=== PATIENT | female | born 1940 | race Caucasian/White ===

== ENCOUNTER 2016-11-19 07:14 | Inpatient (IN) | payer OTHER, MEDICAID ==
[~2016-11-19] VITALS: Ht 162.6 cm; Wt 60.5 kg
[2016-11-19] MEDS ORDERED: SODIUM CHLORIDE 0.9% 1,000 ML IV ONE (07:22)
[2016-11-19] MEDS ORDERED: DIAZEPAM 5 MG/ML, 2ML IVPush ONE (07:30)
[2016-11-19] MEDS ORDERED: SODIUM CHLORIDE FLUSH 10ML SYR IVF ONE (07:30)
[2016-11-19] MEDS ORDERED: ONDANSETRON 2MG/ML, 2ML IVPush ONE (07:30)
[2016-11-19] MEDS ORDERED: PLEASE ENTER ALLERGIES MC SCH ×2 (07:30)
[2016-11-19] MEDS ORDERED: BENA5TAB2 PO (07:50)
[2016-11-19] MEDS ORDERED: LOVA10TA PO (07:50)
[2016-11-19] MEDS ORDERED: HYDR12.53 PO (07:50)
[2016-11-19] MEDS ORDERED: ONDANSETRON 2MG/ML, 2ML ONE (07:58)
[2016-11-19] MEDS ORDERED: DIAZEPAM 5 MG/ML, 2ML ONE (07:58)
[2016-11-19] MEDS ORDERED: MORPHINE SULFATE 4 MG/ML, 1ML ONE ×2 (07:58→09:04)
[2016-11-19] MEDS: MORPHINE SULFATE 4 MG/ML, 1ML IVPush PRN ×2 (08:02→09:14)
[2016-11-19 08:31] LABS: ASPARTATE AMINO TRANSFERASE 8 U/L (15-37); BLOOD UREA NITROGEN 12 mg/dL (7-18)
[2016-11-19] MEDS ORDERED: OMNIPAQUE 350 MG/ML, 100ML BOTTLE ONE (10:31)
[2016-11-19] MEDS ORDERED: DIAZEPAM 5 MG TABLET ONE (10:44)
[2016-11-19] MEDS ORDERED: OXYcodone/APAP 5/325MG TABLET ONE (10:44)
[2016-11-19] MEDS ORDERED: OXYcodone/APAP 5/325MG TABLET PO ONE (11:00)
[2016-11-19] MEDS ORDERED: DIAZEPAM 5 MG TABLET PO ONE (11:00)
[2016-11-19] MEDS ORDERED: HYDROmorphone 2MG TABLET PO ONE (12:10)
[2016-11-19] MEDS ORDERED: POTASSIUM CHLORIDE 20 MEQ TAB.ER.PRT PO ONE (12:30)
[2016-11-19] MEDS ORDERED: CEFTRIAXONE PMX 1GM/50ML 50 ML IV ONE (12:30)
[2016-11-19] MEDS ORDERED: CEFTRIAXONE PMX 1GM/50ML 50 ML ONE (12:38)
[2016-11-19] MEDS ORDERED: POTASSIUM CHLORIDE 20 MEQ TAB.ER.PRT ONE (12:38)
[2016-11-19] MEDS: NICOTINE 21 MG/24 HR PATCH.TD24 TD SCH (14:00)
[2016-11-19 14:37] VITALS: BP 134/62
[2016-11-19] MEDS: OXYcodone IR 5MG TABLET PO PRN ×3 (15:03→22:23)
[2016-11-19] MEDS: HEPARIN 5,000 UNITS/ML, 1ML SQ SCH ×2 (15:39→21:00)
[2016-11-19] MEDS ORDERED: TIOT18CA INH (15:58)
[2016-11-19 20:50] VITALS: BP 146/66
[2016-11-20 02:40] VITALS: BP 107/65
[2016-11-20 04:35] LABS: BLOOD UREA NITROGEN 8 mg/dL (7-18)
[2016-11-20] MEDS: OXYcodone IR 5MG TABLET PO PRN ×5 (04:36→23:14)
[2016-11-20] MEDS: HEPARIN 5,000 UNITS/ML, 1ML SQ SCH ×3 (06:09→21:36)
[2016-11-20] MEDS ORDERED: NALOXONE 1 MG/ML, 2ML ONE (07:24)
[2016-11-20] MEDS ORDERED: FLUMAZENIL 0.1 MG/1 ML, 5ML ONE (07:24)
[2016-11-20] MEDS ORDERED: MIDAZOLAM 1 MG/ML, 5ML ONE (07:24)
[2016-11-20] MEDS ORDERED: FENTANYL PF 100 MCG/2ML ONE (07:24)
[2016-11-20 08:00] VITALS: BP 148/72
[2016-11-20] MEDS: BENAZEPRIL 5 MG TABLET PO SCH (09:43)
[2016-11-20] MEDS: HYDROCHLOROTHIAZIDE 12.5 MG CAPSULE PO SCH (09:44)
[2016-11-20] MEDS: CEFTRIAXONE PMX 1GM/50ML 50 ML IV SCH (12:15)
[2016-11-20] MEDS: NICOTINE 21 MG/24 HR PATCH.TD24 TD SCH (12:46)
[2016-11-20 14:11] VITALS: BP 114/63
[2016-11-20] MEDS ORDERED: POTASSIUM CHLORIDE 20 MEQ TAB.ER.PRT PO ONE (15:00)
[2016-11-20 20:50] VITALS: BP 134/68
[2016-11-21 02:23] VITALS: BP 115/60
[2016-11-21 04:58] LABS: BLOOD UREA NITROGEN 10 mg/dL (7-18)
[2016-11-21] MEDS: OXYcodone IR 5MG TABLET PO PRN ×4 (06:02→21:34)
[2016-11-21] MEDS: HEPARIN 5,000 UNITS/ML, 1ML SQ SCH ×2 (06:03→13:30)
[2016-11-21 06:47] VITALS: BP 137/71
[2016-11-21] MEDS: BENAZEPRIL 5 MG TABLET PO SCH (08:04)
[2016-11-21] MEDS: HYDROCHLOROTHIAZIDE 12.5 MG CAPSULE PO SCH (08:04)
[2016-11-21] MEDS: CEFTRIAXONE PMX 1GM/50ML 50 ML IV SCH (12:13)
[2016-11-21] MEDS: NICOTINE 21 MG/24 HR PATCH.TD24 TD SCH (13:40)
[2016-11-21 13:50] VITALS: BP 130/72
[2016-11-21 16:52] VITALS: BP 134/72
[2016-11-21 18:52] VITALS: BP 134/72
[2016-11-22 04:06] VITALS: BP 124/72
[2016-11-22] MEDS: OXYcodone IR 5MG TABLET PO PRN ×4 (04:48→20:31)
[2016-11-22 06:44] VITALS: BP 104/61
[2016-11-22] MEDS: HYDROCHLOROTHIAZIDE 12.5 MG CAPSULE PO SCH (08:02)
[2016-11-22] MEDS: BENAZEPRIL 5 MG TABLET PO SCH (08:02)
[2016-11-22] MEDS ORDERED: KETAMINE 10 MG/ML, 20ML ONE (10:32)
[2016-11-22] MEDS ORDERED: MIDAZOLAM 1 MG/ML, 2ML ONE (10:32)
[2016-11-22] MEDS ORDERED: FENTANYL PF 100 MCG/2ML ONE (10:32)
[2016-11-22] MEDS ORDERED: POTASSIUM CHLORIDE 20 MEQ TAB.ER.PRT PO ONE ×2 (11:30)
[2016-11-22] MEDS ORDERED: POTASSIUM CHLORIDE 20 MEQ in SODIUM CHLORIDE 0.9% 250 ML IV ONE (11:30)
[2016-11-22] MEDS ORDERED: MAGNESIUM SULFATE PMX 2GM/50ML 50 ML IV ONE (11:30)
[2016-11-22] MEDS: CEFTRIAXONE PMX 1GM/50ML 50 ML IV SCH (11:54)
[2016-11-22 12:53] VITALS: BP 133/69
[2016-11-22] MEDS: NICOTINE 21 MG/24 HR PATCH.TD24 TD SCH (14:21)
[2016-11-22 20:30] VITALS: BP 128/72
[2016-11-22] MEDS: LOVASTATIN 40 MG TABLET PO SCH (20:31)
[2016-11-23] MEDS: OXYcodone IR 5MG TABLET PO PRN (01:22)
[2016-11-23 03:15] VITALS: BP 133/73
[2016-11-23 04:52] LABS: BLOOD UREA NITROGEN 14 mg/dL (7-18)
[2016-11-23] MEDS ORDERED: OXYcodone IR 5MG TABLET PO PRN ×2 (06:00)
[2016-11-23 06:38] VITALS: BP 127/71
[2016-11-23] MEDS ORDERED: MIDAZOLAM 1 MG/ML, 5ML ONE (07:05)
[2016-11-23] MEDS ORDERED: KETAMINE 10 MG/ML, 20ML ONE (07:05)
[2016-11-23] MEDS ORDERED: FENTANYL PF 250 MCG/5ML ONE (07:05)
[2016-11-23] MEDS ORDERED: ALBUTEROL/IPRATROPIUM 2.5MG/0.5MG, 3 ML ONE ×2 (07:39→09:29)
[2016-11-23] MEDS: ALBUTEROL/IPRATROPIUM 2.5MG/0.5MG, 3 ML NPPB PRN ×2 (07:41→09:30)
[2016-11-23] MEDS ORDERED: REMIFENTANIL 1 MG ONE (07:42)
[2016-11-23] MEDS ORDERED: KETAMINE 100 MG/ML, 5ML ONE (07:42)
[2016-11-23] MEDS ORDERED: LIDOCAINE 2%, 20ML ONE (08:00)
[2016-11-23] MEDS ORDERED: HYDROmorphone 1 MG/ML, 1ML IV PRN (09:00)
[2016-11-23] MEDS ORDERED: PROMETHAZINE 25 MG/ML, 1ML IV PRN (09:00)
[2016-11-23] MEDS ORDERED: METOPROLOL 1 MG/ML, 5ML IV PRN (09:00)
[2016-11-23] MEDS ORDERED: FENTANYL PF 100 MCG/2ML IV PRN (09:00)
[2016-11-23] MEDS: HYDROCHLOROTHIAZIDE 12.5 MG CAPSULE PO SCH (09:00)
[2016-11-23] MEDS ORDERED: LABETALOL 5MG/ML, 20ML IV PRN (09:00)
[2016-11-23] MEDS ORDERED: ONDANSETRON 2MG/ML, 2ML IVPush PRN (09:00)
[2016-11-23] MEDS ORDERED: METOCLOPRAMIDE 5 MG/ML, 2ML IV PRN (09:00)
[2016-11-23] MEDS ORDERED: OXYcodone 5 MG/5 ML ORAL.SOL UDC PO PRN (09:00)
[2016-11-23] MEDS ORDERED: hydrALAzine 20 MG/ML, 1ML IV PRN (09:00)
[2016-11-23] MEDS: BENAZEPRIL 5 MG TABLET PO SCH (09:00)
[2016-11-23] MEDS ORDERED: ACETAMINOPHEN 325 MG TABLET PO PRN (09:00)
[2016-11-23] MEDS ORDERED: EPHEDRINE 50 MG/ML, 1ML IVPush PRN (09:00)
[2016-11-23] MEDS: AMLODIPINE 5 MG TABLET PO SCH (09:00)
[2016-11-23] MEDS: NICOTINE 21 MG/24 HR PATCH.TD24 TD SCH (09:50)
[2016-11-23] MEDS ORDERED: METOPROLOL 1 MG/ML, 5ML ONE (10:11)
[2016-11-23] MEDS ORDERED: SUCCINYLCHOLINE 20 MG/ML, 10ML ONE (11:00)
[2016-11-23] MEDS ORDERED: PROPOFOL 10 MG/ML, 50ML ONE (11:00)
[2016-11-23] MEDS ORDERED: GLYCOPYRROLATE 0.2MG/1ML ONE (11:00)
[2016-11-23] MEDS: CEFTRIAXONE PMX 1GM/50ML 50 ML IV SCH (12:30)
[2016-11-23 12:56] VITALS: BP 134/66
[2016-11-23 20:55] VITALS: BP 125/60
[2016-11-23] MEDS: LOVASTATIN 40 MG TABLET PO SCH (21:19)
[2016-11-24 00:57] VITALS: BP 130/63
[2016-11-24 06:40] VITALS: BP 125/58
[2016-11-24] MEDS: BENAZEPRIL 5 MG TABLET PO SCH (08:53)
[2016-11-24] MEDS: AMLODIPINE 5 MG TABLET PO SCH (08:54)
[2016-11-24] MEDS: HYDROCHLOROTHIAZIDE 12.5 MG CAPSULE PO SCH (08:54)
[2016-11-24] MEDS: CEFTRIAXONE PMX 1GM/50ML 50 ML IV SCH (13:05)
[2016-11-24 13:13] VITALS: BP 138/65
[2016-11-24] MEDS: NICOTINE 21 MG/24 HR PATCH.TD24 TD SCH (14:00)
[2016-11-24] MEDS: OXYcodone IR 5MG TABLET PO PRN ×2 (14:13→20:25)
[2016-11-24] MEDS: ACETAMINOPHEN 325 MG TABLET PO PRN (17:42)
[2016-11-24 19:13] VITALS: BP 153/82
[2016-11-24] MEDS: LOVASTATIN 40 MG TABLET PO SCH (20:25)
[2016-11-25] MEDS: OXYcodone IR 5MG TABLET PO PRN ×5 (02:20→19:45)
[2016-11-25 03:58] VITALS: BP 88/58
[2016-11-25 05:00] LABS: BLOOD UREA NITROGEN 12 mg/dL (7-18)
[2016-11-25] MEDS: POLYETHYLENE GLYCOL 17 GM PACKET PO PRN (06:15)
[2016-11-25] MEDS ORDERED: POTASSIUM CHLORIDE 20 MEQ TAB.ER.PRT PO ONE ×2 (08:00)
[2016-11-25] MEDS ORDERED: MAGNESIUM SULFATE PMX 2GM/50ML 50 ML IV ONE (08:00)
[2016-11-25] MEDS ORDERED: SODIUM CHLORIDE 0.9%, 500ML IVBOLUS ONE (08:00)
[2016-11-25 08:30] VITALS: BP 128/77
[2016-11-25] MEDS: HYDROCHLOROTHIAZIDE 12.5 MG CAPSULE PO SCH (09:00)
[2016-11-25] MEDS: AMLODIPINE 5 MG TABLET PO SCH (10:40)
[2016-11-25] MEDS: BENAZEPRIL 5 MG TABLET PO SCH (10:41)
[2016-11-25 12:31] VITALS: BP 130/63
[2016-11-25] MEDS: CEFTRIAXONE PMX 1GM/50ML 50 ML IV SCH (13:14)
[2016-11-25] MEDS: NICOTINE 21 MG/24 HR PATCH.TD24 TD SCH (13:14)
[2016-11-25 19:42] VITALS: BP 129/67
[2016-11-25] MEDS: LOVASTATIN 40 MG TABLET PO SCH (22:38)
[2016-11-26] MEDS: OXYcodone IR 5MG TABLET PO PRN ×6 (02:58→22:08)
[2016-11-26 03:00] VITALS: BP 142/73
[2016-11-26 03:25] VITALS: BP 125/75
[2016-11-26] MEDS: POLYETHYLENE GLYCOL 17 GM PACKET PO PRN (04:34)
[2016-11-26 04:57] LABS: BLOOD UREA NITROGEN 17 mg/dL (7-18)
[2016-11-26 06:51] VITALS: BP 128/75
[2016-11-26] MEDS: AMLODIPINE 5 MG TABLET PO SCH (07:59)
[2016-11-26] MEDS: ACETAMINOPHEN 325 MG TABLET PO PRN (07:59)
[2016-11-26] MEDS: HYDROCHLOROTHIAZIDE 12.5 MG CAPSULE PO SCH (07:59)
[2016-11-26] MEDS: BENAZEPRIL 5 MG TABLET PO SCH (07:59)
[2016-11-26] MEDS ORDERED: CALCIUM CARBONATE 500 MG TAB.CHEW PO SCH (10:30)
[2016-11-26] MEDS ORDERED: BISACODYL 10 MG SUPP PR ONE (11:30)
[2016-11-26] MEDS: CEFTRIAXONE PMX 1GM/50ML 50 ML IV SCH (12:44)
[2016-11-26] MEDS: NICOTINE 21 MG/24 HR PATCH.TD24 TD SCH (12:44)
[2016-11-26] MEDS: CALCIUM CARBONATE 500 MG TAB.CHEW PO PRN (12:44)
[2016-11-26] MEDS: HEPARIN 5,000 UNITS/ML, 1ML SQ SCH ×2 (12:46→21:24)
[2016-11-26 12:52] VITALS: BP 118/68
[2016-11-26] MEDS ORDERED: MORPHINE SULFATE 4 MG/ML, 1ML ONE (14:47)
[2016-11-26] MEDS: morphine SULFATE 10 MG/ML, 1ML IVPush PRN (14:50)
[2016-11-26 20:18] VITALS: BP 122/88
[2016-11-26] MEDS: LOVASTATIN 40 MG TABLET PO SCH (21:24)
[2016-11-27] MEDS: OXYcodone IR 5MG TABLET PO PRN ×5 (02:12→17:57)
[2016-11-27 02:13] VITALS: BP 140/70
[2016-11-27] MEDS: POLYETHYLENE GLYCOL 17 GM PACKET PO PRN (04:52)
[2016-11-27] MEDS: HEPARIN 5,000 UNITS/ML, 1ML SQ SCH ×3 (04:52→20:03)
[2016-11-27 06:35] VITALS: BP 115/57
[2016-11-27] MEDS: AMLODIPINE 5 MG TABLET PO SCH (07:47)
[2016-11-27] MEDS ORDERED: MORPHINE SULFATE 4 MG/ML, 1ML ONE (07:50)
[2016-11-27] MEDS: HYDROCHLOROTHIAZIDE 12.5 MG CAPSULE PO SCH (07:52)
[2016-11-27] MEDS: BENAZEPRIL 5 MG TABLET PO SCH (07:53)
[2016-11-27] MEDS: morphine SULFATE 10 MG/ML, 1ML IVPush PRN ×3 (07:53→16:50)
[2016-11-27] MEDS: DOCUSATE 100 MG CAPSULE PO SCH ×2 (12:01→20:03)
[2016-11-27] MEDS: CEFTRIAXONE PMX 1GM/50ML 50 ML IV SCH (12:01)
[2016-11-27 12:32] VITALS: BP 116/73
[2016-11-27] MEDS: NICOTINE 21 MG/24 HR PATCH.TD24 TD SCH (14:00)
[2016-11-27 19:40] VITALS: BP 111/68
[2016-11-27] MEDS: LOVASTATIN 40 MG TABLET PO SCH (20:03)
[2016-11-28] MEDS: OXYcodone IR 5MG TABLET PO PRN ×4 (01:15→14:59)
[2016-11-28 01:52] VITALS: BP 106/62
[2016-11-28] MEDS: POLYETHYLENE GLYCOL 17 GM PACKET PO PRN (04:45)
[2016-11-28] MEDS: HEPARIN 5,000 UNITS/ML, 1ML SQ SCH ×3 (04:45→21:37)
[2016-11-28 07:30] VITALS: BP 139/76
[2016-11-28] MEDS: BENAZEPRIL 5 MG TABLET PO SCH (09:07)
[2016-11-28] MEDS: HYDROCHLOROTHIAZIDE 12.5 MG CAPSULE PO SCH (09:07)
[2016-11-28] MEDS: AMLODIPINE 5 MG TABLET PO SCH (09:07)
[2016-11-28] MEDS: morphine SULFATE 10 MG/ML, 1ML IVPush PRN ×2 (09:07→11:38)
[2016-11-28] MEDS: DOCUSATE 100 MG CAPSULE PO SCH ×2 (09:07→21:37)
[2016-11-28] MEDS: NICOTINE 21 MG/24 HR PATCH.TD24 TD SCH (12:26)
[2016-11-28 15:15] VITALS: BP 119/70
[2016-11-28 19:31] VITALS: BP 116/73
[2016-11-28] MEDS: LOVASTATIN 40 MG TABLET PO SCH (21:37)
[2016-11-29] MEDS: HEPARIN 5,000 UNITS/ML, 1ML SQ SCH ×3 (03:41→21:59)
[2016-11-29] MEDS: OXYcodone IR 5MG TABLET PO PRN ×4 (03:42→19:36)
[2016-11-29 03:52] VITALS: BP 117/70
[2016-11-29 08:15] VITALS: BP 116/69
[2016-11-29] MEDS ORDERED: LACTULOSE 10 GM/15 ML UDC PO PRN (09:00)
[2016-11-29] MEDS ORDERED: BISACODYL 10 MG SUPP PR PRN (09:00)
[2016-11-29] MEDS: POLYETHYLENE GLYCOL 17 GM PACKET PO PRN (09:44)
[2016-11-29] MEDS: DOCUSATE 100 MG CAPSULE PO SCH ×2 (09:44→19:37)
[2016-11-29] MEDS: HYDROCHLOROTHIAZIDE 12.5 MG CAPSULE PO SCH (09:45)
[2016-11-29] MEDS: AMLODIPINE 5 MG TABLET PO SCH (09:45)
[2016-11-29] MEDS: BENAZEPRIL 5 MG TABLET PO SCH (09:45)
[2016-11-29] MEDS: CALCIUM CARBONATE 500 MG TAB.CHEW PO PRN ×2 (11:28→19:36)
[2016-11-29] MEDS: morphine SULFATE 10 MG/ML, 1ML IVPush PRN ×3 (12:56→21:58)
[2016-11-29] MEDS: NICOTINE 21 MG/24 HR PATCH.TD24 TD SCH (14:26)
[2016-11-29 15:09] VITALS: BP 121/72
[2016-11-29 18:54] VITALS: BP 12/71
[2016-11-29] MEDS: LOVASTATIN 40 MG TABLET PO SCH (19:36)
[2016-11-30 03:45] VITALS: BP 111/65
[2016-11-30] MEDS: HEPARIN 5,000 UNITS/ML, 1ML SQ SCH (04:21)
[2016-11-30] MEDS: morphine SULFATE 10 MG/ML, 1ML IVPush PRN ×3 (04:55→14:22)
[2016-11-30 06:37] VITALS: BP 115/71
[2016-11-30] MEDS: DOCUSATE 100 MG CAPSULE PO SCH ×2 (07:31→20:20)
[2016-11-30] MEDS: AMLODIPINE 5 MG TABLET PO SCH (07:33)
[2016-11-30] MEDS: BENAZEPRIL 5 MG TABLET PO SCH (07:34)
[2016-11-30] MEDS: HYDROCHLOROTHIAZIDE 12.5 MG CAPSULE PO SCH (07:34)
[2016-11-30] MEDS: OXYcodone IR 5MG TABLET PO PRN (08:21)
[2016-11-30] MEDS ORDERED: MORPHINE SULFATE 4 MG/ML, 1ML ONE ×2 (09:48→14:20)
[2016-11-30] MEDS ORDERED: BISACODYL 10 MG SUPP PR PRN (11:00)
[2016-11-30] MEDS: NICOTINE 21 MG/24 HR PATCH.TD24 TD SCH (11:15)
[2016-11-30] MEDS: OxyconTIN ER 10 MG TAB.ER PO SCH ×2 (11:19→22:35)
[2016-11-30] MEDS: ENOXAPARIN 40 MG/0.4 ML SQ SCH (11:19)
[2016-11-30 13:31] VITALS: BP 112/58
[2016-11-30 18:50] VITALS: BP 117/61
[2016-11-30] MEDS: LOVASTATIN 40 MG TABLET PO SCH (20:20)
[2016-12-01 02:19] VITALS: BP 120/68
[2016-12-01] MEDS: OXYcodone IR 5MG TABLET PO PRN ×3 (02:26→15:49)
[2016-12-01 04:46] LABS: BLOOD UREA NITROGEN 15 mg/dL (7-18)
[2016-12-01 06:48] VITALS: BP 116/63
[2016-12-01] MEDS: DOCUSATE 100 MG CAPSULE PO SCH ×2 (07:56→22:51)
[2016-12-01] MEDS: AMLODIPINE 5 MG TABLET PO SCH (08:07)
[2016-12-01] MEDS: OxyconTIN ER 10 MG TAB.ER PO SCH ×2 (10:32→22:51)
[2016-12-01] MEDS: ENOXAPARIN 40 MG/0.4 ML SQ SCH (10:32)
[2016-12-01] MEDS ORDERED: MORPHINE SULFATE 4 MG/ML, 1ML ONE ×2 (11:31→14:45)
[2016-12-01] MEDS: morphine SULFATE 10 MG/ML, 1ML IVPush PRN ×2 (11:36→14:49)
[2016-12-01] MEDS: NICOTINE 21 MG/24 HR PATCH.TD24 TD SCH (12:01)
[2016-12-01 12:35] VITALS: BP 127/69
[2016-12-01 18:45] VITALS: BP 119/68
[2016-12-01] MEDS: LOVASTATIN 40 MG TABLET PO SCH (22:51)
[2016-12-01] MEDS: ONDANSETRON 2MG/ML, 2ML IVP PRN (23:20)
[2016-12-02 02:22] VITALS: BP 120/74
[2016-12-02 07:10] VITALS: BP 117/63
[2016-12-02] MEDS: DOCUSATE 100 MG CAPSULE PO SCH ×2 (07:16→21:00)
[2016-12-02] MEDS: AMLODIPINE 5 MG TABLET PO SCH (07:20)
[2016-12-02] MEDS: OXYcodone IR 5MG TABLET PO PRN ×3 (07:20→18:11)
[2016-12-02] MEDS: ENOXAPARIN 40 MG/0.4 ML SQ SCH (10:26)
[2016-12-02] MEDS: OxyconTIN ER 10 MG TAB.ER PO SCH ×2 (10:26→22:04)
[2016-12-02 13:00] VITALS: BP 115/69
[2016-12-02] MEDS: NICOTINE 21 MG/24 HR PATCH.TD24 TD SCH (13:22)
[2016-12-02 20:04] VITALS: BP 107/55
[2016-12-02] MEDS: LOVASTATIN 40 MG TABLET PO SCH (21:00)
[2016-12-02 22:16] VITALS: BP 105/69
[2016-12-03 02:11] VITALS: BP 117/70
[2016-12-03 04:46] LABS: BLOOD UREA NITROGEN 11 mg/dL (7-18)
[2016-12-03] MEDS: OXYcodone IR 5MG TABLET PO PRN ×4 (06:36→18:01)
[2016-12-03 07:03] VITALS: BP 115/68
[2016-12-03] MEDS: AMLODIPINE 5 MG TABLET PO SCH (09:06)
[2016-12-03] MEDS: DOCUSATE 100 MG CAPSULE PO SCH ×2 (09:06→22:43)
[2016-12-03] MEDS: OxyconTIN ER 10 MG TAB.ER PO SCH ×2 (09:12→22:43)
[2016-12-03] MEDS: ENOXAPARIN 40 MG/0.4 ML SQ SCH (10:52)
[2016-12-03 13:38] VITALS: BP 102/65
[2016-12-03] MEDS: NICOTINE 21 MG/24 HR PATCH.TD24 TD SCH (14:00)
[2016-12-03 20:03] VITALS: BP 128/67
[2016-12-03] MEDS: LOVASTATIN 40 MG TABLET PO SCH (22:43)
[2016-12-04 02:16] VITALS: BP 126/73
[2016-12-04 05:26] LABS: BLOOD UREA NITROGEN 13 mg/dL (7-18)
[2016-12-04 06:50] VITALS: BP 111/70
[2016-12-04] MEDS: OXYcodone IR 5MG TABLET PO PRN ×2 (08:28→14:07)
[2016-12-04] MEDS: AMLODIPINE 5 MG TABLET PO SCH (08:29)
[2016-12-04] MEDS: DOCUSATE 100 MG CAPSULE PO SCH ×2 (08:30→20:48)
[2016-12-04] MEDS: OxyconTIN ER 10 MG TAB.ER PO SCH ×2 (11:29→22:22)
[2016-12-04] MEDS: ENOXAPARIN 40 MG/0.4 ML SQ SCH (11:29)
[2016-12-04] MEDS: morphine SULFATE 10 MG/ML, 1ML IVPush PRN (11:30)
[2016-12-04 12:57] VITALS: BP 107/66
[2016-12-04] MEDS: NICOTINE 21 MG/24 HR PATCH.TD24 TD SCH (14:00)
[2016-12-04 20:00] VITALS: BP 116/66
[2016-12-04] MEDS: BISACODYL 5 MG EC TABLET PO PRN (20:47)
[2016-12-04] MEDS: LOVASTATIN 40 MG TABLET PO SCH (20:47)
[2016-12-05 03:16] VITALS: BP 118/70
[2016-12-05 05:55] LABS: BLOOD UREA NITROGEN 13 mg/dL (7-18)
[2016-12-05 06:54] VITALS: BP 110/67
[2016-12-05] MEDS: DOCUSATE 100 MG CAPSULE PO SCH ×2 (09:29→20:04)
[2016-12-05] MEDS: OXYcodone IR 5MG TABLET PO PRN ×2 (09:29→15:00)
[2016-12-05] MEDS: AMLODIPINE 5 MG TABLET PO SCH (09:30)
[2016-12-05] MEDS: ENOXAPARIN 40 MG/0.4 ML SQ SCH (12:27)
[2016-12-05] MEDS: OxyconTIN ER 10 MG TAB.ER PO SCH ×2 (12:27→22:07)
[2016-12-05] MEDS: NICOTINE 21 MG/24 HR PATCH.TD24 TD SCH (12:30)
[2016-12-05 13:13] VITALS: BP 113/63
[2016-12-05 20:00] VITALS: BP 127/70
[2016-12-05] MEDS: LOVASTATIN 40 MG TABLET PO SCH (20:04)
[2016-12-05] MEDS: BISACODYL 5 MG EC TABLET PO PRN (20:04)
[2016-12-06 02:00] VITALS: BP 112/66
[2016-12-06] MEDS: OXYcodone IR 5MG TABLET PO PRN ×3 (03:47→19:53)
[2016-12-06 07:11] VITALS: BP 120/72
[2016-12-06] MEDS: AMLODIPINE 5 MG TABLET PO SCH (08:36)
[2016-12-06] MEDS: DOCUSATE 100 MG CAPSULE PO SCH ×2 (08:36→19:53)
[2016-12-06] MEDS: OxyconTIN ER 10 MG TAB.ER PO SCH ×2 (10:26→19:53)
[2016-12-06] MEDS: ENOXAPARIN 40 MG/0.4 ML SQ SCH (10:28)
[2016-12-06 13:18] VITALS: BP 95/56
[2016-12-06] MEDS: NICOTINE 21 MG/24 HR PATCH.TD24 TD SCH (14:00)
[2016-12-06] MEDS: LOVASTATIN 40 MG TABLET PO SCH (19:53)
[2016-12-06 20:00] VITALS: BP 101/63
[2016-12-06] MEDS: ONDANSETRON 2MG/ML, 2ML IVP PRN (20:24)
[2016-12-07 01:36] VITALS: BP 102/64
[2016-12-07] MEDS: OXYcodone IR 5MG TABLET PO PRN ×3 (04:33→21:50)
[2016-12-07 07:00] VITALS: BP 104/54
[2016-12-07] MEDS: ONDANSETRON ODT 4 MG PO PRN (08:19)
[2016-12-07] MEDS: DOCUSATE 100 MG CAPSULE PO SCH ×2 (08:20→21:50)
[2016-12-07] MEDS: AMLODIPINE 5 MG TABLET PO SCH (08:20)
[2016-12-07] MEDS: OxyconTIN ER 10 MG TAB.ER PO SCH ×2 (10:38→22:40)
[2016-12-07] MEDS: ENOXAPARIN 40 MG/0.4 ML SQ SCH (10:38)
[2016-12-07] MEDS: NICOTINE 21 MG/24 HR PATCH.TD24 TD SCH (13:00)
[2016-12-07] MEDS: CALCIUM CARBONATE 500 MG TAB.CHEW PO PRN (13:00)
[2016-12-07 14:18] VITALS: BP 100/64
[2016-12-07 20:25] VITALS: BP 125/66
[2016-12-07] MEDS: LOVASTATIN 40 MG TABLET PO SCH (21:50)
[2016-12-08 03:12] VITALS: BP 120/76
[2016-12-08] MEDS: OXYcodone IR 5MG TABLET PO PRN ×3 (03:48→19:40)
[2016-12-08 07:07] VITALS: BP 117/68
[2016-12-08] MEDS: AMLODIPINE 5 MG TABLET PO SCH (08:51)
[2016-12-08] MEDS: DOCUSATE 100 MG CAPSULE PO SCH ×2 (08:51→19:40)
[2016-12-08] MEDS: ENOXAPARIN 40 MG/0.4 ML SQ SCH (10:29)
[2016-12-08] MEDS: OxyconTIN ER 10 MG TAB.ER PO SCH ×2 (10:29→23:04)
[2016-12-08] MEDS: NICOTINE 21 MG/24 HR PATCH.TD24 TD SCH (14:04)
[2016-12-08] MEDS: ONDANSETRON ODT 4 MG PO PRN (14:08)
[2016-12-08 14:26] VITALS: BP 109/74
[2016-12-08 19:03] VITALS: BP 102/64
[2016-12-08] MEDS: LOVASTATIN 40 MG TABLET PO SCH (19:40)
[2016-12-09 01:06] VITALS: BP 104/64
[2016-12-09 05:32] LABS: BLOOD UREA NITROGEN 12 mg/dL (7-18)
[2016-12-09 05:37] LABS: ASPARTATE AMINO TRANSFERASE 10 U/L (15-37)
[2016-12-09] MEDS: OXYcodone IR 5MG TABLET PO PRN ×2 (06:00→16:54)
[2016-12-09 07:01] VITALS: BP 92/56
[2016-12-09] MEDS: POLYETHYLENE GLYCOL 17 GM PACKET PO PRN (08:38)
[2016-12-09] MEDS: AMLODIPINE 5 MG TABLET PO SCH (08:38)
[2016-12-09] MEDS: DOCUSATE 100 MG CAPSULE PO SCH ×2 (08:38→22:36)
[2016-12-09] MEDS: OxyconTIN ER 10 MG TAB.ER PO SCH ×2 (10:16→22:36)
[2016-12-09] MEDS: ENOXAPARIN 40 MG/0.4 ML SQ SCH (10:16)
[2016-12-09] MEDS: POTASSIUM CHLORIDE 20 MEQ TAB.ER.PRT PO SCH ×2 (10:16→16:54)
[2016-12-09] MEDS: NICOTINE 21 MG/24 HR PATCH.TD24 TD SCH (11:44)
[2016-12-09 13:53] VITALS: BP 114/65
[2016-12-09] MEDS ORDERED: MAGNESIUM SULFATE PMX 2GM/50ML 50 ML IV ONE (16:30)
[2016-12-09 19:11] VITALS: BP 112/55
[2016-12-09] MEDS: LOVASTATIN 40 MG TABLET PO SCH (22:36)
[2016-12-10 01:49] VITALS: BP 103/59
[2016-12-10] MEDS: OXYcodone IR 5MG TABLET PO PRN ×2 (02:06→12:32)
[2016-12-10 06:57] LABS: ASPARTATE AMINO TRANSFERASE 10 U/L (15-37); BLOOD UREA NITROGEN 10 mg/dL (7-18)
[2016-12-10 07:19] VITALS: BP 103/71
[2016-12-10] MEDS: ONDANSETRON ODT 4 MG PO PRN (09:07)
[2016-12-10] MEDS: DOCUSATE 100 MG CAPSULE PO SCH ×2 (09:07→21:00)
[2016-12-10] MEDS: AMLODIPINE 5 MG TABLET PO SCH (09:08)
[2016-12-10] MEDS: MAGNESIUM OXIDE 400 MG TABLET PO SCH (09:08)
[2016-12-10] MEDS: POTASSIUM CHLORIDE 20 MEQ TAB.ER.PRT PO SCH ×2 (09:08→12:30)
[2016-12-10] MEDS: NICOTINE 21 MG/24 HR PATCH.TD24 TD SCH (09:11)
[2016-12-10] MEDS: OxyconTIN ER 10 MG TAB.ER PO SCH ×2 (10:23→22:32)
[2016-12-10] MEDS: ENOXAPARIN 40 MG/0.4 ML SQ SCH (10:26)
[2016-12-10] MEDS: CALCIUM CARBONATE 500 MG TAB.CHEW PO PRN (12:30)
[2016-12-10 15:00] VITALS: BP 107/63
[2016-12-10 19:54] VITALS: BP 109/67
[2016-12-10] MEDS: LOVASTATIN 40 MG TABLET PO SCH (21:42)
[2016-12-11 01:59] VITALS: BP 99/65
[2016-12-11] MEDS: OXYcodone IR 5MG TABLET PO PRN ×3 (04:05→16:43)
[2016-12-11 07:39] VITALS: BP 129/77
[2016-12-11] MEDS: OxyconTIN ER 10 MG TAB.ER PO SCH ×2 (10:05→22:40)
[2016-12-11] MEDS: DOCUSATE 100 MG CAPSULE PO SCH ×2 (10:06→19:51)
[2016-12-11] MEDS: AMLODIPINE 5 MG TABLET PO SCH (10:06)
[2016-12-11] MEDS: MAGNESIUM OXIDE 400 MG TABLET PO SCH (10:06)
[2016-12-11] MEDS: ENOXAPARIN 40 MG/0.4 ML SQ SCH (10:08)
[2016-12-11] MEDS: CALCIUM CARBONATE 500 MG TAB.CHEW PO PRN (11:46)
[2016-12-11 13:24] VITALS: BP 99/59
[2016-12-11] MEDS: NICOTINE 21 MG/24 HR PATCH.TD24 TD SCH (14:00)
[2016-12-11 19:01] VITALS: BP 106/67
[2016-12-11] MEDS: LOVASTATIN 40 MG TABLET PO SCH (19:51)
[2016-12-12 01:10] VITALS: BP 129/73
[2016-12-12] MEDS: OXYcodone IR 5MG TABLET PO PRN ×2 (02:55→09:03)
[2016-12-12 06:55] VITALS: BP 135/74
[2016-12-12] MEDS: ONDANSETRON 2MG/ML, 2ML IVP PRN (07:42)
[2016-12-12] MEDS: AMLODIPINE 5 MG TABLET PO SCH (09:34)
[2016-12-12] MEDS: MAGNESIUM OXIDE 400 MG TABLET PO SCH (09:34)
[2016-12-12] MEDS: DOCUSATE 100 MG CAPSULE PO SCH (09:34)
[2016-12-12] MEDS: CALCIUM CARBONATE 500 MG TAB.CHEW PO PRN ×2 (09:49→13:34)
[2016-12-12] MEDS: OxyconTIN ER 10 MG TAB.ER PO SCH (10:43)
[2016-12-12] MEDS: morphine SULFATE 10 MG/ML, 1ML IVPush PRN (11:00)
[2016-12-12] MEDS: ENOXAPARIN 40 MG/0.4 ML SQ SCH (11:01)
[2016-12-12] MEDS ORDERED: morphine SULFATE ORAL.CONC 20 MG/ML PO ONE (12:00)
[2016-12-12] MEDS ORDERED: OxyconTIN ER 20 MG TAB.ER PO SCH (12:00)
[2016-12-12 12:48] VITALS: BP 112/69
[2016-12-12] MEDS: NICOTINE 21 MG/24 HR PATCH.TD24 TD SCH (14:00)
[2016-12-12] MEDS ORDERED: OXYC5TAB3 PO (14:58)
[2016-12-12] MEDS ORDERED: Ondansetron PO (14:58)
[2016-12-12] MEDS ORDERED: NICO1PAT5 TD (14:58)
[2016-12-12] MEDS ORDERED: POLY17PO5 PO (14:58)
[2016-12-12] MEDS ORDERED: AMLO5TAB2 PO (14:58)
[2016-12-12] MEDS ORDERED: OXYC20TA42 PO (14:58)
[2016-12-12] MEDS ORDERED: MAGN400T26 PO (14:58)
[2016-12-12] MEDS ORDERED: DOCU-30 PO (14:58)
[2016-12-12] MEDS ORDERED: METH10TA6 PO (14:58)
[2016-12-12] MEDS ORDERED: BISA10SU65 PR (14:58)
== END 2016-12-12 16:25 | DRG 853 ==
LOC: ED 08:19 → EDIP 12:06 → 3NW 14:23
PROVIDERS: ADMIT Internal Medicine; ATTEND Internal Medicine
PROC: 07B74ZX Excision of Thorax Lymphatic, Percutaneous Endoscopic Approach, Diagnostic (ICD-10-PCS; principal; 2016-11-23 07:30)
PROC: DBY27ZZ Contact Radiation of Lung (ICD-10-PCS; 2016-11-29)
PROC: 0T9B70Z Drainage of Bladder with Drainage Device, Via Natural or Artificial Opening (ICD-10-PCS; 2016-12-12)
DX: A41.9 Sepsis, unspecified organism (principal); J96.01 Acute respiratory failure with hypoxia; G93.41 Metabolic encephalopathy; C34.31 Malignant neoplasm of lower lobe, right bronchus or lung; N39.0 Urinary tract infection, site not specified; C79.49 Secondary malignant neoplasm of other parts of nervous system; J98.11 Atelectasis; N13.30 Unspecified hydronephrosis; C79.51 Secondary malignant neoplasm of bone; M54.6 Pain in thoracic spine; I10 Essential (primary) hypertension; E87.6 Hypokalemia; R59.0 Localized enlarged lymph nodes; F17.210 Nicotine dependence, cigarettes, uncomplicated; Z66 Do not resuscitate; K59.00 Constipation, unspecified; E05.20 Thyrotoxicosis with toxic multinodular goiter without thyrotoxic crisis or storm; Z51.5 Encounter for palliative care; Z96.641 Presence of right artificial hip joint; D63.8 Anemia in other chronic diseases classified elsewhere; E83.42 Hypomagnesemia; G89.3 Neoplasm related pain (acute) (chronic); I71.4 Abdominal aortic aneurysm, without rupture; K80.20 Calculus of gallbladder without cholecystitis without obstruction; K82.8 Other specified diseases of gallbladder; M54.5 Low back pain; Z53.29 Procedure and treatment not carried out because of patient's decision for other reasons; M41.9 Scoliosis, unspecified; M48.06 Spinal stenosis, lumbar region; Z85.118 Personal history of other malignant neoplasm of bronchus and lung; Z85.820 Personal history of malignant melanoma of skin; Z51.0 Encounter for antineoplastic radiation therapy
CPT/HCPCS: 31625; 36415; 70450; 71275; 72072; 72110; 72146; 72148; 74022; 74176; 77280; 77290; 77295; 77300; 77334; 77336; 77387; 77412; 80048; 80053; 81001; 82330; 82803; 82947; 83735; 84100; 84132; 84295; 84439; 84443; 85014; 85025; 85610; 87086; 88172; 88173; 88177; 88305; 93005; 94640; 96374; 96375; 96376; 99156; 99157; J0696; J1644; J1650; J2250; J2405; J2704; J3010; J3360; J3480; J3490; J7620; Q0162; Q9967; J0330; J2270; J2310; J3475; J7030; J7040; J7050